=== PATIENT | male | born 1970 | race Caucasian/White ===

== ENCOUNTER 2018-04-10 10:40 | Emergency (ER) | payer MEDICAID ==
[2018-04-10] MEDS: IBUPROFEN 600 MG TAB PO (11:09)
== END 2018-04-10 12:46 | disposition home or self-care (01) ==
LOC: FTE 10:40
DX: S89.92XA Unspecified injury of left lower leg, initial encounter (principal); R40.2412 Glasgow coma scale score 13-15, at arrival to emergency department; F17.210 Nicotine dependence, cigarettes, uncomplicated; V18.1XXA Pedal cycle passenger injured in noncollision transport accident in nontraffic accident, initial encounter
CPT/HCPCS: 29505; 73562; 99283-25